=== PATIENT | female | born 1960 | race Caucasian/White ===

== ENCOUNTER 2016-04-19 06:28 | Day surgery (SDC) | payer OTHER ==
[~2016-04-19] VITALS: Ht 162.6 cm; Wt 127.0 kg
[~2016-04-19 06:28] MED LIST: DEXILANT60 MG; DEXILANT60 MG PO; Vicodin,Norco 5/325 PO
[2016-04-19 07:25] VITALS: BP 150/70
[2016-04-19 11:44] LABS: TROP-I INTERPRETATION NEGATIVE; TROPONIN-I < 0.01 ng/mL (0.0-0.30)
[2016-04-19 12:45] VITALS: BP 147/66
[2016-04-19 16:10] VITALS: BP 157/71
[2016-04-19 20:00] VITALS: BP 139/76
[2016-04-20] VITALS: BP 131/63
[2016-04-20 04:00] VITALS: BP 136/71
[2016-04-20] MEDS ORDERED: HYDROCODON-ACE1 EAC7 PO (07:09)
[2016-04-20] MEDS ORDERED: IBUPROFEN800 MG PO (07:09)
[2016-04-20 08:00] VITALS: BP 151/65
== END 2016-04-20 09:45 | disposition home or self-care (01) ==
LOC: SDC 06:28 → 2EAST 10:50 → 2SOUTH 10:50 → 2EAST 12:56
PROVIDERS: Obstetrics & Gynecology
PROC: 0UT9FZZ Resection of Uterus, Via Natural or Artificial Opening With Percutaneous Endoscopic Assistance (ICD-10-PCS; principal; 2016-04-19)
PROC: 0UT24ZZ Resection of Bilateral Ovaries, Percutaneous Endoscopic Approach (ICD-10-PCS; principal; 2016-04-19)
PROC: 0UT74ZZ Resection of Bilateral Fallopian Tubes, Percutaneous Endoscopic Approach (ICD-10-PCS; principal; 2016-04-19)
DX: N85.01 Benign endometrial hyperplasia (principal); N92.4 Excessive bleeding in the premenopausal period; K21.9 Gastro-esophageal reflux disease without esophagitis; Z87.891 Personal history of nicotine dependence; R00.1 Bradycardia, unspecified
CPT/HCPCS: 84484; 88307; G0378; J0330; J0690; J1100; J1170; J1580; J1650; J1885; J2250; J2405; J2710; J3010; J7050

== ENCOUNTER 2016-09-04 17:15 | Emergency (ER) | payer OTHER ==
[~2016-09-04] VITALS: Ht 162.6 cm; Wt 136.0 kg
[~2016-09-04 17:15] MED LIST changes: +HYDROCODON-ACE1 EAC7 PO; +IBUPROFEN800 MG PO
[2016-09-04 19:46] VITALS: BP 149/75
== END 2016-09-04 19:46 | disposition home or self-care (01) ==
LOC: RME 17:15 → EME 17:15 → RME 19:46
PROC: 3E0234Z Introduction of Serum, Toxoid and Vaccine into Muscle, Percutaneous Approach (ICD-10-PCS; principal; 2016-09-04)
DX: S09.90XA Unspecified injury of head, initial encounter (principal); S00.01XA Abrasion of scalp, initial encounter; W22.8XXA Striking against or struck by other objects, initial encounter; Z87.891 Personal history of nicotine dependence
CPT/HCPCS: 99281; 99284

== ENCOUNTER 2017-03-22 09:29 | Emergency (ER) | payer OTHER ==
[~2017-03-22] VITALS: Ht 162.6 cm; Wt 156.4 kg
[2017-03-22] MEDS ORDERED: MOTRIN800 MG PO (15:51)
[2017-03-22] MEDS ORDERED: ULTRAM50 MG PO (15:51)
[2017-03-22 16:39] VITALS: BP 159/87
== END 2017-03-22 16:39 | disposition home or self-care (01) ==
LOC: EME 09:29
PROC: 0RSMXZZ Reposition Left Elbow Joint, External Approach (ICD-10-PCS; principal; 2017-03-22)
DX: S53.125A Posterior dislocation of left ulnohumeral joint, initial encounter (principal); S42.454A Nondisplaced fracture of lateral condyle of right humerus, initial encounter for closed fracture; W01.0XXA Fall on same level from slipping, tripping and stumbling without subsequent striking against object, initial encounter; Y93.01 Activity, walking, marching and hiking; K21.9 Gastro-esophageal reflux disease without esophagitis; Z88.5 Allergy status to narcotic agent; Z87.891 Personal history of nicotine dependence
CPT/HCPCS: 73070; 73080; 73090; 73100; 73110; 73200; 99281; 99285; J2270; J3010